=== PATIENT | female | born 1995 | race Caucasian/White ===

== ENCOUNTER 2017-05-15 23:38 | Emergency (ER) | payer OTHER ==
[2017-05-15 23:41] VITALS: BMI 24.5
[2017-05-15 23:43] VITALS: BP 120/62; PULSE 63; RESP 16; TEMP 97.8; O2SAT 99
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
== END 2017-05-16 00:45 | disposition home or self-care (01) ==
LOC: H.ER 23:38
DX: Z04.6 Encounter for general psychiatric examination, requested by authority (principal)